=== PATIENT | female | born 1995 | race African-American/Black ===

== ENCOUNTER → 2016-12-24 | Outpatient (CLI) | payer MEDICAID ==
[~2016-12-24] MED LIST: IBU800 M1 PO; KEPPRA500 MG PO; MACROBID100 M1 PO; MACRODANTIN100 M1 PO; ZYRTEC10 MG PO
== END | disposition home or self-care (01) ==
LOC: RAD 11:43
DX: M43.17 Spondylolisthesis, lumbosacral region (principal); M40.46 Postural lordosis, lumbar region